=== PATIENT | female | born 1955 | race Caucasian/White ===

== ENCOUNTER → 2017-02-02 | Outpatient (CLI) | payer BC | LOC: MC.RAD 15:14 | DX: Z12.31 Encounter for screening mammogram for malignant neoplasm of breast (principal); Z90.11 Acquired absence of right breast and nipple ==

== ENCOUNTER → 2018-03-11 | Outpatient (CLI) | payer BC | LOC: MC.RAD 09:36 | DX: Z12.31 Encounter for screening mammogram for malignant neoplasm of breast (principal); Z98.82 Breast implant status; Z85.3 Personal history of malignant neoplasm of breast ==

== ENCOUNTER → 2019-04-05 | Outpatient (CLI) | payer BC | LOC: MC.RAD 07:15 | DX: Z12.31 Encounter for screening mammogram for malignant neoplasm of breast (principal); Z98.890 Other specified postprocedural states; Z85.3 Personal history of malignant neoplasm of breast; Z98.82 Breast implant status ==

== ENCOUNTER → 2019-11-02 | Outpatient (CLI) | payer BC | LOC: COL.RAD 07:06 | DX: K80.20 Calculus of gallbladder without cholecystitis without obstruction (principal) ==

== ENCOUNTER → 2020-03-18 | Outpatient (CLI) | payer BC | LOC: MC.RAD 08:12 | DX: Z12.31 Encounter for screening mammogram for malignant neoplasm of breast (principal); Z98.82 Breast implant status; Z85.3 Personal history of malignant neoplasm of breast ==

== ENCOUNTER → 2021-03-19 | Outpatient (CLI) | payer BC | LOC: MC.RAD 09:09 | DX: Z12.31 Encounter for screening mammogram for malignant neoplasm of breast (principal); Z98.82 Breast implant status; Z85.3 Personal history of malignant neoplasm of breast ==

== ENCOUNTER 2022-03-06 07:18 | Day surgery (SDC) | payer MEDICARE, BC ==
[~2022-03-06] VITALS: Ht 160 cm; Wt 61.9 kg
[2022-03-06 08:35] VITALS: BP 162/86; PULSE 88; TEMP 97.1
[2022-03-06 08:50] VITALS: BP 150/81; PULSE 84
[2022-03-06 09:05] VITALS: BP 141/74; PULSE 88
--- NOTE | 2022-03-06 09:05 | NUR ---
0835 RETURNS TO ROOM 4 AMBULATES TO CHAIR WITH STANDBY ASSIST. ALERT. MONITORS ON, VITAL SIGNS OBTAINED. DENIES NAUSEA OR ABD PAIN. HERE, CALL LIGHT AT SIDE. 0850 TOLERATES PO JUICE AND MUFFIN WITHOUT NAUSEA. 0857 DR. GARCIA HERE TO VISIT WITH PATIENT. 0902 DRESSES SELF. CONTINUES TO DENIES NAUSEA OR ABD PAIN
[2022-03-06 17:16] VITALS: BP 132/74; PULSE 93; TEMP 97.5
[2022-03-06] MEDS ORDERED: TOPAMAX 25MG25 M1 PO (17:29)
[2022-03-06] MEDS ORDERED: CRESTOR 10MG10 MG PO (17:30)
[2022-03-06] MEDS ORDERED: PRILOSEC 20MG20 MG PO (17:30)
[2022-03-06] MEDS ORDERED: XYZAL5 MG PO (17:32)
[2022-03-06] MEDS ORDERED: MAG-OX 400400 MG/TAB PO (17:32)
[2022-03-06] MEDS ORDERED: FISH OIL1000 MG PO (17:33)
[2022-03-06] MEDS ORDERED: VITAMIN D31000 I1 PO (17:34)
[2022-03-06] MEDS ORDERED: ACIDOPHILIS (17:35)
== END 2022-03-06 09:09 | disposition home or self-care (01) ==
LOC: SDCO 07:18
DX: Z12.11 Encounter for screening for malignant neoplasm of colon (principal); Z83.71 Family history of colonic polyps
CPT/HCPCS: J2704; J7120